=== PATIENT | female | born 1950 | race Caucasian/White ===

== ENCOUNTER 2018-05-07 11:09 | Emergency (ER) | payer MEDICARE, MEDICAID ==
[~2018-05-07] VITALS: Ht 172.7 cm; Wt 83.9 kg
--- NOTE | 2018-05-07 11:30 | NUR ---
L L Q ABD PAIN, NON RADIATING X 3 DAYS. ASSOCIATED NAUSEA AND VOMITING, DENIES DIARRHEA , NAD NOTED, VSS, RESP EVEN AND UNLABORED, PT WAS PUT ON MONITOR, WAITING FOR MD GONZALES.
[2018-05-07 12:09] LABS: BASOPHILS % (AUTO) 0.6 % (0.0-2.0); EOSINOPHILS % (AUTO) 0.4 % (0.0-6.0); HEMATOCRIT 44 % (33-45); HEMOGLOBIN 14.9 g/dL (11.5-14.8); LYMPHOCYTES # (AUTO) 1.9 /CMM (0.8-4.8); LYMPHOCYTES % (AUTO) 25.7 % (20.0-44.0); MEAN CORPUSCULAR HGB CONC 34 g/dl (31.0-36.0); MEAN CORPUSCULAR VOLUME 85 fL (82-100); MONOCYTES # (AUTO) 0.5 /CMM (0.1-1.30); MONOCYTES % (AUTO) 6.6 % (2.0-12.0); NEUTROPHILS # (AUTO) 5.1 /CMM (1.8-8.9); NEUTROPHILS % (AUTO) 66.7 % (43.0-81.0); PLATELET COUNT (AUTO) 222 /CMM (150-450); RDW COEFFICIENT OF VARIATION 12.4 (11.5-15.0); RED BLOOD CELL COUNT(AUTO) 5.16 MIL/uL (4.0-5.2); WHITE BLOOD COUNT (AUTO) 7.5 K/uL (4.3-11.0)
[2018-05-07 12:17] LABS: CALCIUM, SERUM 9.1 mg/dL (8.5-10.1); CARBON DIOXIDE 29 mmol/L (21-32); CHLORIDE 101 mmol/L (98-107); CREATININE 0.4 mg/dL (0.6-1.3); GLUCOSE 141 mg/dL (74-106); POTASSIUM 4.1 mmol/L (3.5-5.1); SODIUM SERUM 136 mmol/L (136-145); UREA NITROGEN, BLOOD 10 mg/dL (7-18)
[2018-05-07 12:23] LABS: ALANINE AMINOTRANSFERASE 27 U/L (12-78); ALBUMIN 3.6 g/dL (3.4-5.0); ALKALINE PHOSPHATASE 60 U/L (46-116); ASPARTATE AMINOTRANSFERASE 14 U/L (15-37); BILIRUBIN,DIRECT 0.1 mg/dL (0.0-0.2); BILIRUBIN,TOTAL 0.5 mg/dL (0.2-1.0); LIPASE 104 U/L (73-393)
[2018-05-07 12:25] LABS: TROPONIN I < 0.017 ng/mL (0.00-0.056)
--- NOTE | 2018-05-07 12:30 | NUR ---
URINE SENT TO LAB
[2018-05-07 12:34] LABS: APPEARANCE,URINE Clear (CLEAR); BILIRUBIN,URINE Negative (NEGATIVE); BLOOD, URINE Negative Ery/uL (NEGATIVE); COLOR,URINE Yellow (YELLOW); KETONES,URINE Negative (NEGATIVE); LEUKOCYTE ESTERASE ,URINE Negative (NEGATIVE); NITRITE, URINE Negative (NEGATIVE); PROTEIN,URINE Negative (NEGATIVE); UGLUCOSE 500 MG/DL mg/dL (NEGATIVE); UROBILINOGEN,URINE 0.2 EU/dL (0.2)
--- NOTE | 2018-05-07 12:50 | NUR ---
PT. VERBALIZED UNDERSTANDING OF AFTERCARE INSTRUCTIONS.Patient discharged to home in stable condition. Written and verbal after care instructions given. Patient verbalizes understanding of instruction.
[2018-05-07 12:51] VITALS: BP 152/81
[2018-05-08] MEDS ORDERED: ASPI-1169 PO (01:18)
[2018-05-08] MEDS ORDERED: LISI-603 PO (01:18)
[2018-05-08] MEDS ORDERED: CANA100T PO (01:18)
[2018-05-08] MEDS ORDERED: ESCI10TA PO (01:18)
[2018-05-08] MEDS ORDERED: AMLO10TA6 PO (01:18)
[2018-05-08] MEDS ORDERED: ATOR40TA PO (01:18)
== END 2018-05-07 12:52 | disposition home or self-care (01) ==
LOC: ER 11:10
DX: R10.32 Left lower quadrant pain (principal); R11.0 Nausea; I10 Essential (primary) hypertension; E11.9 Type 2 diabetes mellitus without complications
CPT/HCPCS: 36415; 74176; 80048; 80076; 81001; 83690; 84484; 85025; 99285; A4606; 81000-TC; Z7610

== ENCOUNTER 2018-05-07 19:10 | Inpatient (IN) | payer MEDICARE, MEDICAID ==
[~2018-05-07] VITALS: Ht 170.2 cm; Wt 95.3 kg
[2018-05-07] MEDS ORDERED: ONDANSETRON HCL/PF - ER 4 MG/2 ML VIAL IV ONE (20:00)
[2018-05-07] MEDS ORDERED: IV NS 0.9% 1,000 ML BAG IV ONE (20:00)
[2018-05-07] MEDS ORDERED: ONDANSETRON HCL/PF 4 MG/2 ML VIAL ONE (20:00)
--- NOTE | 2018-05-07 20:10 | NUR ---
BIBSELF C/O N/V X 2 DAYS. 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 WAS D/C'ED EARLIER TODAY FROM [facility]. SKIN WNL. VSS. RESP EVEN AND UNLABORED. NO S/S OF ACUTE DISTRESS NOTED. PT PLACED ON MACHINE CLOTH TRIMMER AND POX. PT SAFETY AND COMFORT MEASURES IN PLACE.
[2018-05-07 20:17] LABS: BASOPHILS # (AUTO) 0.2 /CMM (0.0-0.2); BASOPHILS % (AUTO) 2.8 % (0.0-2.0); EOSINOPHILS % (AUTO) 0.4 % (0.0-6.0); HEMATOCRIT 47 % (33-45); HEMOGLOBIN 15.4 g/dL (11.5-14.8); LYMPHOCYTES # (AUTO) 1.6 /CMM (0.8-4.8); LYMPHOCYTES % (AUTO) 19.8 % (20.0-44.0); MEAN CORPUSCULAR HGB CONC 33 g/dl (31.0-36.0); MEAN CORPUSCULAR VOLUME 86 fL (82-100); MONOCYTES # (AUTO) 0.5 /CMM (0.1-1.30); MONOCYTES % (AUTO) 6.8 % (2.0-12.0); NEUTROPHILS # (AUTO) 5.8 /CMM (1.8-8.9); NEUTROPHILS % (AUTO) 70.2 % (43.0-81.0); PLATELET COUNT (AUTO) 229 /CMM (150-450); RDW COEFFICIENT OF VARIATION 12.2 (11.5-15.0); RED BLOOD CELL COUNT(AUTO) 5.39 MIL/uL (4.0-5.2); WHITE BLOOD COUNT (AUTO) 8.1 K/uL (4.3-11.0)
[2018-05-07 20:45] LABS: CALCIUM, SERUM 9.2 mg/dL (8.5-10.1); CREATININE 0.6 mg/dL (0.6-1.3); POTASSIUM 4.1 mmol/L (3.5-5.1)
--- NOTE | 2018-05-07 21:00 | NUR ---
PT STATES SHE IS FEELING NAUSEATED. MD MADE AWARE
--- NOTE | 2018-05-07 21:06 | NUR ---
BEDSIDE SPEAKING WITH PT
[2018-05-07] MEDS ORDERED: METOCLOPRAMIDE HCL 10 MG/2 ML VIAL ONE (21:09)
[2018-05-07] MEDS ORDERED: PANTOPRAZOLE 40 MG VIAL ONE (21:10)
[2018-05-07] MEDS ORDERED: LABETALOL HCL IV 100MG VIAL ONE (21:21)
--- NOTE | 2018-05-07 21:22 | NUR ---
TELE 311-2 FOR INTRACTABLE NAUSEA AND HYPERTENSION OUT OF CONTROL, SHARATH COLINDRES PAINTINGS CONSERVATOR ADMITTING
[2018-05-07] MEDS ORDERED: PROMETHAZINE HCL 25 MG TABLET ONE (21:24)
[2018-05-07] MEDS: PROMETHAZINE HCL 25 MG TABLET PO SCH (21:28)
[2018-05-07] MEDS ORDERED: ACETAMINOPHEN 325 MG TABLET PO PRN (21:30)
[2018-05-07] MEDS ORDERED: METOCLOPRAMIDE HCL 10 MG/2 ML VIAL IV ONE (21:30)
[2018-05-07] MEDS ORDERED: LABETALOL HCL IV 100MG VIAL IV ONE (21:30)
[2018-05-07] MEDS ORDERED: Z GUARD REMEDY 2 OZ OINT TP PRN (21:30)
[2018-05-07] MEDS ORDERED: METOCLOPRAMIDE HCL 15 MG in IV NS 0.9% 50 ML IV PRN (21:30)
[2018-05-07] MEDS ORDERED: HYDROCODONE/APAP 5/325MG 1 EACH TABLET PO PRN (21:30)
[2018-05-07] MEDS ORDERED: MAG HYDROX/AL HYDROX/SIMETH 30 ML UDC PO PRN (21:30)
[2018-05-07] MEDS ORDERED: MAGNESIUM HYDROXIDE 30 ML UDC PO PRN (21:30)
[2018-05-07] MEDS ORDERED: PANTOPRAZOLE 40 MG VIAL IV ONE (21:30)
[2018-05-07] MEDS ORDERED: SCOPOLAMINE HBR 1 EA PATCH.TD72 TD ONE ×2 (21:30→22:34)
--- NOTE | 2018-05-07 21:41 | NUR ---
REPORT GIVEN TO KAYLEIGH PADGETT FOR W[facility].
[2018-05-07 22:00] VITALS: BP 167/84
[2018-05-07] MEDS: ENOXAPARIN SODIUM 40 MG/0.4 ML DISP.SYRIN SQ SCH (22:30)
--- NOTE | 2018-05-07 22:30 | NUR ---
MS/CUSTOMER SUPPORT PROFESSIONAL ADMITTING NOTE Patient was admitted to the unit from ED. Patient arrived in stable condition, vitals WNL, and initial physical assessment was unremarkable. Patient is AAOx3, breathing comfortably on RA with no SOB. Patient is still experiencing nausea; abdomen is soft and nontender. Patient was able to ambulate to the bathroom independently with a standby assist only. Patient is accompanied by friend and daughter. Past medical history was obtained from patient. Patient was oriented to room and unit and made comfortable in bed. The bed is in the low/locked position, two side rails up, and call od within reach. Will continue to monitor.
--- NOTE | 2018-05-07 23:00 | NUR ---
MS/PORT STEWARD NOTE - Seen by SUPERVISOR FIREARMS Chio Grimm NP saw patient and family at bedside. Will arrange for GI consult tomorrow morning, keep patient NPO and order IV fluids.
[2018-05-08] VITALS (7 sets, daily range): BP systolic 138–168; BP diastolic 70–87
[2018-05-08] MEDS ORDERED: INSULIN REGULAR, HUMAN 100 UNIT/ML 3 ML VIAL SQ PRN (00:30)
[2018-05-08] MEDS ORDERED: DEXTROSE 50%-WATER 50 ML DISP.SYRIN IV PRN (00:30)
[2018-05-08] MEDS: IV NS 0.9% 1,000 ML IV SCH ×3 (00:43→20:33)
[2018-05-08] MEDS ORDERED: ATOR40TA PO (01:18)
[2018-05-08] MEDS ORDERED: AMLO10TA6 PO (01:18)
[2018-05-08] MEDS ORDERED: ESCI10TA PO (01:18)
[2018-05-08] MEDS ORDERED: ASPI-1169 PO (01:18)
[2018-05-08] MEDS ORDERED: CANA100T PO (01:18)
[2018-05-08] MEDS ORDERED: LISI-603 PO (01:18)
[2018-05-08] MEDS: ONDANSETRON HCL/PF 4 MG/2 ML VIAL IVP PRN ×4 (03:13→23:25)
--- NOTE | 2018-05-08 03:15 | NUR ---
MS/RN CLINICAL RESOURCE NOTE - Zofran Patient awoke from sleep complaining of nausea and feeling as though she might vomit. 4mg IV Zofran was given as ordered prn q6h.
--- NOTE | 2018-05-08 05:30 | NUR ---
MS RN NOTE - Nausea, metoclopramide unavailable Patient still complains of significant nausea despite IV Zofran. PRN metoclopramide is ordered but unavailable in both [facility] within our unit. Phone call was made to the Nurse Gyroscope Repairer who stated this medication is unavailable; she also checked in the ED. Per Nurse Gyroscope Repairer, must wait until day shift to arrange with pharmacy.
[2018-05-08] MEDS: BLOOD SUGAR DIAGNOSTIC 1 EACH STRIP IN SCH ×4 (05:47→23:07)
--- NOTE | 2018-05-08 06:53 | NUR ---
MS RN CLOSING NOTE Patient was seen lying in bed AAOx3, breathing on RA with no SOB. Patient still complains of significant nausea despite IV Zofran, however, the patient had no episodes of emesis overnight. Patient slept poorly overnight, but had no complications and remains in stable condition. NS at 100ml/hr is running through the left hand. Telemonitor shows NSR. Call do is within reach. Patient care has been endorsed to day shift nurse.
[2018-05-08 07:30] LABS: BASOPHILS % (AUTO) 0.2 % (0.0-2.0); MEAN CORPUSCULAR VOLUME 88 fL (82-100); RDW COEFFICIENT OF VARIATION 12.8 (11.5-15.0)
[2018-05-08 07:32] LABS: HEMATOCRIT 44 % (33-45); HEMOGLOBIN 14.5 g/dL (11.5-14.8); LYMPHOCYTES # (AUTO) 1.6 /CMM (0.8-4.8); MEAN CORPUSCULAR HGB CONC 33 g/dl (31.0-36.0); MONOCYTES # (AUTO) 0.3 /CMM (0.1-1.30); MONOCYTES % (AUTO) 4.1 % (2.0-12.0); NEUTROPHILS # (AUTO) 6.3 /CMM (1.8-8.9); NEUTROPHILS % (AUTO) 76.7 % (43.0-81.0); PLATELET COUNT (AUTO) 194 /CMM (150-450); RED BLOOD CELL COUNT(AUTO) 5.01 MIL/uL (4.0-5.2); WHITE BLOOD COUNT (AUTO) 8.2 K/uL (4.3-11.0)
[2018-05-08 07:48] LABS: CALCIUM, SERUM 8.1 mg/dL (8.5-10.1); CREATININE 0.5 mg/dL (0.6-1.3); MAGNESIUM 1.9 mg/dL (1.8-2.4); PHOSPHORUS 4.2 mg/dL (2.5-4.9); POTASSIUM 4.1 mmol/L (3.5-5.1)
[2018-05-08 07:50] LABS: THYROID STIMULATING HORMONE 0.812 uIU/mL (0.358-3.74)
[2018-05-08] MEDS: LISINOPRIL (20MG) 20 MG TABLET PO SCH (08:00)
[2018-05-08] MEDS: ASPIRIN 81 MG TAB.CHEW PO SCH (08:00)
[2018-05-08] MEDS: ESCITALOPRAM OXALATE (10 MG) 10 MG TABLET PO SCH (08:00)
[2018-05-08] MEDS: ATORVASTATIN 40 MG TABLET PO SCH (08:00)
--- NOTE | 2018-05-08 08:05 | NUR ---
MASK LAYOUT DESIGNER OPENING NOTE PATIENT IS ALERT AND ORIENTED x3. NO PAIN AT THIS TIME. NO SOB OR DISTRESS NOTED. CALL LIGHT WITHIN REACH AND SAFETY MEASURES IMPLEMENTED. ABLE TO COMMUNICATE NEEDS. IV INTACT AND PATENT NO REDNESS OR SWELLING NOTED WITH IV FLUIDS RUNNING AT THIS TIME. NPO AT THIS TIME. NO NAUSEA/VOMIT PRESENT AT THIS TIME. TELE MONITOR [id number]. WILL CONTINUE TO MONITOR THROUGHOUT SHIFT
[2018-05-08] MEDS: PANTOPRAZOLE 40 MG VIAL IV SCH (08:55)
[2018-05-08] MEDS: NICOTINE PATCH (14MG) 14 MG PATCH.TD24 TD SCH ×2 (08:55→09:00)
[2018-05-08] MEDS: PROMETHAZINE HCL 25 MG TABLET PO SCH (08:56)
--- NOTE | 2018-05-08 10:15 | NUR ---
MS RN NOTE ZOFRAN 4MG IV GIVEN AT THIS TIME. PATIENT HAD ONE EPISODE OF EMESIS PRIOR TO ZOFRAN ADMINISTRATION. WILL MONITOR FOR NAUSEA/VOMITING
--- NOTE | 2018-05-08 10:55 | NUR ---
MS RN NOTE DR. GERARD PAGED FOR REGLAN ORDER CLARIFICATION. AWAITING CALL BACK
--- NOTE | 2018-05-08 11:00 | NUR ---
MS RN NOTE DR. GERARD CALLED BACK WITH REGLAN 10 MG IVP Q8H. ORDER NOTED AND CARRIED OUT.
[2018-05-08] MEDS: DICYCLOMINE HCL 10 MG CAPSULE PO SCH ×3 (12:00→23:07)
--- NOTE | 2018-05-08 12:00 | NUR ---
MS RN NOTE BLOOD SUGAR 140 NO INSULIN TO BE GIVEN AT THIS TIME. PATIENT IS NPO.
[2018-05-08] MEDS: METOCLOPRAMIDE HCL 10 MG/2 ML VIAL IV SCH ×2 (12:26→20:32)
--- NOTE | 2018-05-08 14:00 | NUR ---
MS RN NOTE PER DR. MOUSTAPHA GRIMALDO TO GIVE PATIENT CLEAR LIQUIDS TOLERATED BY PATIENT.
--- NOTE | 2018-05-08 18:50 | NUR ---
MS RN CLOSING NOTE PATIENT RESTING COMFORTABLY AT THIS TIME. NO FACIAL GRIMACING NOTED FOR PAIN. NO SOB OR DISTRESS NOTED, ON ROOM AIR TOLERATING WELL. ABLE TO COMMUNICATE NEEDS. IV INTACT AND PATENT WITH IV FLUIDS RUNNING AT THIS TIME. WILL HAVE EGD PROCEDURE DONE TOMORROW, CONSENTS PLACED IN CHART. ALL DUE MEDICATIONS GIVEN ORDERED. ALL NURSING CARE NEEDS ATTENDED TO NEEDED. NPO AFTER MIDNIGHT. BLOOD USGAR CHECKED THROUGHOUT SHIFT NO INSULIN GIVEN. WILL ENDORSE TO SAS ANALYST NURSE FOR WYATT
--- NOTE | 2018-05-08 19:30 | NUR ---
MS RN OPENING NOTES: RECEIVED PT IN BED AND IS ASLEEP AT THIS TIME. FAMILY MEMBERS AT BEDSIDE. FAMILY MEMBERS WOULD LIKE HER TO GET SOME SLEEP AND COME BACK FOR VITALS. EXPLAINED TO FAMILY THAT WILL EVENTUALLY NEED A SET OF VITALS FROM HER. PT HAS IV ON L HAND #20G AND IS BEING INFUSED WITH NS AT 100ML/HR. CALL LIGHT WITHIN PT'S REACH. BED KEPT IN LOW, LOCKED POSITION, AND SIDE RAILS X 2UP. WILL CONTINUE TO MONITOR PT.
--- NOTE | 2018-05-08 21:00 | NUR ---
MS RN NOTES: ROBI VASQUEZ ON FLOOR. INFORMED HIM THAT PT IS TO GO FOR EGD PROCEDURE TOMORROW. OK TO HOLD [email or web address] FOR TONIGHT.
[2018-05-08] MEDS: ENOXAPARIN SODIUM 40 MG/0.4 ML DISP.SYRIN SQ SCH (21:15)
[2018-05-08] MEDS ORDERED: AMLODIPINE BESYLATE 10 MG TABLET PO SCH (22:00)
[2018-05-09] MEDS: METOCLOPRAMIDE HCL 10 MG/2 ML VIAL IV SCH ×2 (03:00→12:00)
[2018-05-09] MEDS: ONDANSETRON HCL/PF 4 MG/2 ML VIAL IVP PRN (05:25)
[2018-05-09] MEDS: BLOOD SUGAR DIAGNOSTIC 1 EACH STRIP IN SCH ×3 (05:33→17:42)
[2018-05-09] MEDS: IV NS 0.9% 1,000 ML IV SCH ×2 (05:36→16:30)
[2018-05-09] MEDS: DICYCLOMINE HCL 10 MG CAPSULE PO SCH ×3 (05:38→17:42)
--- NOTE | 2018-05-09 05:39 | NUR ---
MS RN NOTES: NON-ADMIN FOR VITOR PT IS TO GO FOR EGD TODAY. ALSO, PER FAMILY REQUESTS, THEY WOULD LIKE HER TO GET SOME SLEEP AND REST IF SHE'S ASLEEP AND MINIMIZE WAKING HER UP IF POSSIBLE.
--- NOTE | 2018-05-09 06:23 | NUR ---
MS RN CLOSING NOTES: ALL NEEDS WERE ATTENDED AND ANTICIPATED FOR. PT KEPT NPO SINCE MIDNIGHT. PT HAS IV FLUIDS BEING INFUSED AT NS 100ML/HR. PT ASLEEP AT THIS TIME AND IS ON 2LPM VIA NC. CALL LIGHT WITHIN PT'S REACH. BED KEPT IN LOW, LOCKED POSITION, AND SIDE RAILS X 2UP. WILL ENDORSE TO AM NURSE FOR W[facility]ATT.
[2018-05-09 08:00] VITALS: BP_SYST 132; BP_SYST 140; BP_DIAS 78; BP_DIAS 80
[2018-05-09 08:12] LABS: INR 1.03 (0.87-1.13)
[2018-05-09] MEDS: PANTOPRAZOLE 40 MG VIAL IV SCH (08:58)
[2018-05-09] MEDS: ATORVASTATIN 40 MG TABLET PO SCH (08:58)
[2018-05-09 08:59] VITALS: BP 140/80
[2018-05-09] MEDS: ASPIRIN 81 MG TAB.CHEW PO SCH (08:59)
[2018-05-09] MEDS: LISINOPRIL (20MG) 20 MG TABLET PO SCH (08:59)
[2018-05-09] MEDS: NICOTINE PATCH (14MG) 14 MG PATCH.TD24 TD SCH (09:00)
[2018-05-09] MEDS: ESCITALOPRAM OXALATE (10 MG) 10 MG TABLET PO SCH (09:00)
--- NOTE | 2018-05-09 11:02 | NUR ---
MS RN NOTE BLOOD SUGAR -143- NPO EXCEPT MEDS FOR EGD
--- NOTE | 2018-05-09 11:59 | NUR ---
MS RN NOTE PATIENT HEADING DOWN TO OR FOR EGD PROCEDURE. PATIENT IN STABLE CONDITION AND WILL RESUME CARE WHEN PATIENT RETURNS TO UNIT
--- NOTE | 2018-05-09 14:30 | NUR ---
RN NOTE GAVE REPORT TO LUKE FOR WYATT
--- NOTE | 2018-05-09 14:35 | NUR ---
MS RN RECEIVED PATIENT ON BED, AWAKE,ALERT,ORIENTEDX3,NOT IN ANY FORM OF DISTRESS, S/P EGD WILL BE GOING HOME TODAY PER MD.
--- NOTE | 2018-05-09 16:00 | NUR ---
MS RN WAS SEEN BY DR. MOUSTAPHA Barker/ [facility] FOR SHINGLES. DISCHARGE INSTRUCTIONS GIVEN TO PT AND DAUGHTER.
--- NOTE | 2018-05-09 17:30 | NUR ---
MS RN BLOOD SUGAR - 129 - NO COVERAGE GIVEN, ALL NEEDS ATTENDED.
--- NOTE | 2018-05-09 18:10 | NUR ---
MS RN PATIENT WENT HOME ACCOMPANIED BY DAUGHTER,ALL NEEDS ATTENDED.
== END 2018-05-09 18:13 | disposition home or self-care (01) | DRG 74 ==
LOC: ER 19:13 → TELE 21:37 → MED 05-08 11:06
PROVIDERS: ADMIT Registered Nurse; ATTEND Registered Nurse
PROC: 0DB68ZX Excision of Stomach, Via Natural or Artificial Opening Endoscopic, Diagnostic (ICD-10-PCS; 2018-05-09)
PROC: 0DB98ZX Excision of Duodenum, Via Natural or Artificial Opening Endoscopic, Diagnostic (ICD-10-PCS; principal; 2018-05-09 13:05)
DX: E11.43 Type 2 diabetes mellitus with diabetic autonomic (poly)neuropathy (principal); E87.1 Hypo-osmolality and hyponatremia; A08.4 Viral intestinal infection, unspecified; K29.80 Duodenitis without bleeding; E86.0 Dehydration; D35.00 Benign neoplasm of unspecified adrenal gland; K31.84 Gastroparesis; Z85.72 Personal history of non-Hodgkin lymphomas; I10 Essential (primary) hypertension; E78.5 Hyperlipidemia, unspecified; E66.9 Obesity, unspecified; R16.0 Hepatomegaly, not elsewhere classified; Z68.32 Body mass index [BMI] 32.0-32.9, adult; K44.9 Diaphragmatic hernia without obstruction or gangrene; K29.00 Acute gastritis without bleeding; B02.9 Zoster without complications; F17.200 Nicotine dependence, unspecified, uncomplicated
CPT/HCPCS: 36415; 80048-TC; 80076-TC; 81000-TC; 82962-TC; 83690-TC; 83735-TC; 84100-TC; 84443-TC; 84484-TC; 85025-TC; 85610-TC; 85730-TC; 87081-TC; 88305-TC; 92611-TC; A4216; A4606; C9113; J1650; J1815; J2405; J2765; J3490; J7030; Q0169; Z7610